=== PATIENT | male | born 1985 | race Caucasian/White ===

== ENCOUNTER 2024-04-01 22:56 | Inpatient (IN) | payer BC, OTHER ==
[~2024-04-01] VITALS: Ht 177.8 cm; Wt 117.0 kg
[2024-04-01 23:31] LABS: Basophils # (auto) 0.1 10 ^3/uL (0-0.2); Eosinophils # (auto) 0.5 10 ^3/uL (0-0.8); Lymphocytes # (auto) 3.2 10 ^3/uL (0.4-5.4); Monocytes # (auto) 0.9 10 ^3/uL (0-1.3); White Blood Cell 10.8 10^3/uL (4.4-10.8)
[2024-04-01 23:32] LABS: Basophils % (auto) 1.1 % (0.0-2.0); Eosinophils % (auto) 4.5 % (0.0-7.0); Hematocrit 50.7 % (41.0-53.0); Hemoglobin 17.8 g/dL (13.5-17.5); Lymphocytes % (auto) 29.9 % (10.0-50.0); Mean Corpuscular Hemoglobin 32.4 pg (28.0-32.0); Mean Corpuscular Hgb Conc. 35.2 g/dL (32.0-36.0); Mean Corpuscular Volume 92.1 fL (80.0-100.0); Monocytes % (auto) 8.3 % (0.0-12.0); Neutrophils # (auto) 6.1 10 ^3/uL (1.6-8.6); Neutrophils % (auto) 56.2 % (37.0-80.0); Nucleated Red Blood Cells % 0.2 %; Platelet Count (auto) 296 10^3/uL (140-450)
[2024-04-01 23:35] LABS: Alanine Aminotransferase 56 U/L (7-40); Alkaline Phosphatase 117 U/L (46-116); Anion Gap 8 (5-15); Aspartate Aminotransferase 15 U/L (13-40); BUN/Creatinine Ratio 11.9 (10.0-20.0); Blood Urea Nitrogen 13 mg/dL (9-23); Calcium 9.7 mg/dL (8.7-10.4); Carbon Dioxide 24 mmol/L (20-31); Chloride 107 mmol/L (98-107); Glucose 305 mg/dL (74-106); Potassium 4.2 mmol/L (3.5-5.1); Sodium 139 mmol/L (136-145)
[2024-04-01 23:36] LABS: Albumin 4.3 g/dL (3.2-4.8); Bilirubin, Total 0.4 mg/dL (0.2-1.0); Total Protein 7.2 g/dL (5.7-8.2)
[2024-04-02] VITALS (8 sets, daily range): BP systolic 113–150; BP diastolic 71–98; PULSE 81–92; RESP 17–19; TEMP 97.7–98; O2SAT 91–95
[2024-04-02 00:15] LABS: Urine Bacteria None Seen /hpf (None Seen)
[2024-04-02] MEDS: MORPHINE SULFATE 4 MG/ML SYR/VIAL IV ONE (00:22)
[2024-04-02] MEDS: ASPirin 325 MG TAB PO ONE (00:22)
[2024-04-02] MEDS: ONDANSETRON HCL 4 MG/2 ML VIAL IV ONE (00:22)
[2024-04-02 00:48] LABS: Urine Blood Negative /uL (Negative); Urine Clarity Clear (Clear); Urine Color Light-Yellow (Yellow); Urine Protein, UAD TRACE (Negative); Urine Specific Gravity 1.028 (1.001-1.035); Urine Urobilinogen Normal (Negative); Urine WBC 1 /hpf (0 - 3); Urine pH 5.5 (5.0-9.0)
[2024-04-02] MEDS ORDERED: MORPHINE SULFATE INJ 2 MG/ml SYRG IV PRN (01:15)
[2024-04-02] MEDS ORDERED: NITROGLYCERIN 0.4 MG SL TAB SL PRN (01:15)
[2024-04-02] MEDS ORDERED: DEXTROSE (50%) 50ML SYRG IV PRN (02:00)
[2024-04-02] MEDS: InsuLIN REG 1unit/0.01ml Soln (100units/ml) SC SCH (06:00)
[2024-04-02] MEDS: ACCU-CHEK COMFORT CURVE STRIP VI SCH (06:00)
[2024-04-02] MEDS ORDERED: LISI-275 PO (06:26)
[2024-04-02] MEDS ORDERED: METF-370 PO ×2 (06:26)
[2024-04-02] MEDS ORDERED: SEMA2INJ3 SC (06:27)
[2024-04-02 06:42] LABS: Anion Gap 6 (5-15); Carbon Dioxide 27 mmol/L (20-31); Chloride 107 mmol/L (98-107); INR 1.08 (0.9-1.15); Partial Thromboplastin Time 25.3 SEC (24.5-34.5); Potassium 4.1 mmol/L (3.5-5.1); Prothrombin Time 11.4 sec (9.3-11.8); Sodium 140 mmol/L (136-145)
[2024-04-02 06:43] LABS: Calcium 9.1 mg/dL (8.7-10.4)
[2024-04-02 06:48] LABS: BUN/Creatinine Ratio 13.9 (10.0-20.0); Blood Urea Nitrogen 14 mg/dL (9-23)
[2024-04-02 06:49] LABS: Glucose 194 mg/dL (74-106)
[2024-04-02] MEDS: ATORVASTATIN 20 MG TAB PO ONE (06:51)
[2024-04-02 07:05] LABS: Basophils # (auto) 0.1 10 ^3/uL (0-0.2); Eosinophils # (auto) 0.5 10 ^3/uL (0-0.8); Eosinophils % (auto) 5.3 % (0.0-7.0); Hematocrit 47.3 % (41.0-53.0); Hemoglobin 16.6 g/dL (13.5-17.5); Lymphocytes # (auto) 3.6 10 ^3/uL (0.4-5.4); Lymphocytes % (auto) 35.5 % (10.0-50.0); Mean Corpuscular Hemoglobin 32.4 pg (28.0-32.0); Mean Corpuscular Hgb Conc. 35.2 g/dL (32.0-36.0); Mean Corpuscular Volume 92.1 fL (80.0-100.0); Monocytes # (auto) 0.9 10 ^3/uL (0-1.3); Monocytes % (auto) 8.7 % (0.0-12.0); Neutrophils % (auto) 49.5 % (37.0-80.0); Platelet Count (auto) 260 10^3/uL (140-450); Red Blood Cells 5.14 10^6/uL (4.5-5.90); Red Cell Distribution Width 13.2 % (11.8-14.3); White Blood Cell 10.1 10^3/uL (4.4-10.8)
[2024-04-02 08:53] LABS: Triglycerides 162 mg/dL (< 150)
[2024-04-02 08:54] LABS: LDL Cholesterol 98 mg/dL (< 100)
[2024-04-02 08:55] LABS: HDL Cholesterol 34 mg/dL (40-59)
[2024-04-02 08:56] LABS: Cholesterol 155 mg/dL (< 200)
[2024-04-02] MEDS: SODIUM CHLORIDE 0.9% 1,000 ML IV SCH (13:11)
== END 2024-04-02 19:00 | disposition home or self-care (01) | DRG 206 ==
LOC: ER 22:56 → EEVIPCON 22:56 → TELE 04-02 01:07 → TELE-WESTW 04-02 01:07
PROVIDERS: ADMIT Internal Medicine Geriatric Medicine; ATTEND Internal Medicine Geriatric Medicine
DX: M94.0 Chondrocostal junction syndrome [Tietze] (principal); E11.9 Type 2 diabetes mellitus without complications; E78.5 Hyperlipidemia, unspecified; I10 Essential (primary) hypertension; E66.812 Obesity, class 2; Z79.899 Other long term (current) drug therapy; Z82.49 Family history of ischemic heart disease and other diseases of the circulatory system; Z68.37 Body mass index [BMI] 37.0-37.9, adult
CPT/HCPCS: 36415; 71045; 80048; 80053; 80061; 80320; 81001; 82962; 83036; 83880; 84443; 84484; 85025; 85610; 85730; 86141; 86850; 86900; 86901; 93017; 93306; 96361; 96374; 96375; 99291; G0378; J1815; J2405

== ENCOUNTER → 2024-09-05 | Outpatient (CLI) | payer BC ==
[~2024-09-05] MED LIST: LISI-275 PO; METF-370 PO; SEMA2INJ3 SC
[2024-09-05 11:21] LABS: Urine Bacteria None Seen /hpf (None Seen)
[2024-09-05 11:32] LABS: Urine Blood Negative /uL (Negative); Urine Clarity Clear (Clear); Urine Color Yellow (Yellow); Urine Mucus FEW (None Seen); Urine Protein, UAD 2+ (Negative); Urine Squamous Epithelial Cell FEW /hpf (<5); Urine Urobilinogen Normal (Negative); Urine WBC 2 /HPF (0-3); Urine pH 5.5 (5.0-9.0)
[2024-09-05 11:34] LABS: Basophils # (auto) 0.1 10 ^3/uL (0-0.2); Basophils % (auto) 0.5 % (0.0-2.0); Eosinophils # (auto) 0.2 10 ^3/uL (0-0.8); Eosinophils % (auto) 2.4 % (0.0-7.0); Hematocrit 52.2 % (41.0-53.0); Hemoglobin 18.3 g/dL (13.5-17.5); Lymphocytes # (auto) 2.3 10 ^3/uL (0.4-5.4); Lymphocytes % (auto) 23.3 % (10.0-50.0); Mean Corpuscular Hemoglobin 32.2 pg (28.0-32.0); Mean Corpuscular Hgb Conc. 35.1 g/dL (32.0-36.0); Mean Corpuscular Volume 91.8 fL (80.0-100.0); Monocytes # (auto) 0.8 10 ^3/uL (0-1.3); Monocytes % (auto) 8.4 % (0.0-12.0); Neutrophils # (auto) 6.4 10 ^3/uL (1.6-8.6); Neutrophils % (auto) 65.4 % (37.0-80.0); Nucleated Red Blood Cells % 0.4 %; Platelet Count (auto) 287 10^3/uL (140-450); Red Blood Cells 5.68 10^6/uL (4.5-5.90); White Blood Cell 9.8 10^3/uL (4.4-10.8)
[2024-09-05 12:25] LABS: Albumin 4.8 g/dL (3.2-4.8); Alkaline Phosphatase 61 U/L (46-116); Anion Gap 7 (5-15); Aspartate Aminotransferase 14 U/L (13-40); BUN/Creatinine Ratio 14.7 (10.0-20.0); Blood Urea Nitrogen 15 mg/dL (9-23); Calcium 9.9 mg/dL (8.7-10.4); Carbon Dioxide 28 mmol/L (20-31); Chloride 101 mmol/L (98-107); Cholesterol 190 mg/dL (< 200); Potassium 4.3 mmol/L (3.5-5.1); Sodium 136 mmol/L (136-145); Total Protein 7.8 g/dL (5.7-8.2)
[2024-09-05 12:30] LABS: Alanine Aminotransferase 67 U/L (7-40); Glucose 218 mg/dL (74-106); HDL Cholesterol 34 mg/dL (40-59); Triglycerides 313 mg/dL (< 150)
[2024-09-05 12:31] LABS: LDL Cholesterol 102 mg/dL (< 100)
[2024-09-05 12:38] LABS: Creatinine, Urine 237.83 mg/dL (30.0-125.0)
== END | disposition home or self-care (01) ==
LOC: LAB 11:07
PROVIDERS: ATTEND Internal Medicine
DX: I10 Essential (primary) hypertension (principal); E11.29 Type 2 diabetes mellitus with other diabetic kidney complication; E11.69 Type 2 diabetes mellitus with other specified complication; R80.9 Proteinuria, unspecified; Z00.01 Encounter for general adult medical examination with abnormal findings
CPT/HCPCS: 36415; 80053; 80061; 81001; 82043; 82570; 83036; 84439; 84443; 85025

== ENCOUNTER 2025-01-08 09:16 | Outpatient (CLI) | payer BC ==
[2025-01-08 10:59] LABS: Albumin 4.6 g/dL (3.2-4.8); Alkaline Phosphatase 51 U/L (46-116); Anion Gap 12 (5-15); BUN/Creatinine Ratio 16.1 (10.0-20.0); Blood Urea Nitrogen 15 mg/dL (9-23); Calcium 10.3 mg/dL (8.7-10.4); Carbon Dioxide 26 mmol/L (20-31); Chloride 102 mmol/L (98-107); Cholesterol 149 mg/dL (< 200); Potassium 4.0 mmol/L (3.5-5.1); Sodium 140 mmol/L (136-145); Total Protein 7.1 g/dL (5.7-8.2)
[2025-01-08 11:00] LABS: Bilirubin, Total 0.7 mg/dL (0.2-1.0)
[2025-01-08 11:01] LABS: Alanine Aminotransferase 42 U/L (7-40); Glucose 145 mg/dL (74-106); HDL Cholesterol 35 mg/dL (40-59); Triglycerides 210 mg/dL (< 150)
== END 2025-01-08 17:00 | disposition home or self-care (01) ==
LOC: LAB 09:16
PROVIDERS: ATTEND Internal Medicine
DX: E11.69 Type 2 diabetes mellitus with other specified complication (principal); E78.2 Mixed hyperlipidemia; E66.01 Morbid (severe) obesity due to excess calories; R74.01 Elevation of levels of liver transaminase levels
CPT/HCPCS: 36415; 80053; 80061; 83036